=== PATIENT | male | born 1960 | race Caucasian/White ===

== ENCOUNTER 2019-10-13 10:40 | Outpatient (CLI) | payer BC ==
--- NOTE | 2019-10-13 12:13 | XRAY Report ---
Reason: RT HIP PAIN Procedure Date: 10/13/2019 Accession Number: [id number] / [id number] Procedure: XRS - Hip w/Pelvis 2-3V RT CPT Code: Final Report FULL RESULT: PROCEDURE: Hip w/Pelvis 2-3V RT INDICATIONS: RT HIP PAIN TECHNIQUE: AP views of pelvis and lateral view of right hip were obtained. COMPARISON: None. FINDINGS: Bone and joints: Right worse than left bilateral hip joint osteophytic changes are seen with joint space narrowing, subchondral sclerosis and cyst formation and marginal osteophyte formation. No acute fracture or dislocation. No evidence of avascular necrosis of femoral head. Pelvic ring is intact. 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 Soft tissues: No abnormal calcifications. IMPRESSION: Right worse than left bilateral hip joint osteoarthritis. No fracture or dislocation. No evidence of avascular necrosis of femoral head. Reviewed by: Otto Kuhn MD on 10/13/2019 12:12 PM PDT Approved by: Otto Kuhn MD on 10/13/2019 12:12 PM PDT Station ID: [id number]
--- NOTE | 2019-10-13 12:26 | XRAY Report ---
Reason: M70.22 OLECRANON BURSITIS LT ELBOW Procedure Date: 10/13/2019 Accession Number: [id number] / [id number] Procedure: XRS - Elbow 3 View LT CPT Code: Final Report FULL RESULT: PROCEDURE: Elbow 3 View LT INDICATIONS: M70.22 OLECRANON BURSITIS LT ELBOW TECHNIQUE: 3 views of left elbow were obtained. COMPARISON: None. FINDINGS: Elbow alignment is anatomic. No fracture or dislocation. No suspicious intraosseous lesion. There is no joint effusion. Mild dorsal soft tissue swelling over olecranon is seen which may represent olecranon bursitis. IMPRESSION: Mild soft tissue swelling over dorsal aspect of the olecranon, which may represent olecranon bursitis. No joint effusion. No elbow fracture or dislocation. Reviewed by: Otto Kuhn MD on 10/13/2019 12:25 PM PDT Approved by: Otto Kuhn MD on 10/13/2019 12:25 PM PDT Station ID: [id number]
== END 2019-10-13 10:41 | disposition home or self-care (01) ==
LOC: DI.S 10:40
PROVIDERS: ATTEND Registered Nurse
DX: M16.0 Bilateral primary osteoarthritis of hip (principal); M70.22 Olecranon bursitis, left elbow